=== PATIENT | male | born 1975 | race African-American/Black ===

== ENCOUNTER 2017-12-11 21:25 | Emergency (ER) | payer OTHER ==
[2017-12-11 22:08] VITALS: BP 122/81
[2017-12-11] MEDS ORDERED: NACL 0.9% IR ONE (23:52)
[2017-12-11] MEDS ORDERED: BOOSTRIX IM ONE (23:52)
[2017-12-11] MEDS ORDERED: XYLOCAINE 1% 20 mL INFILTRATI ONE (23:52)
--- NOTE | 2017-12-12 00:05 | Emergency Department Report ---
ED Laceration HPI - HPI Chief Complaint: Wound/Laceration Stated Complaint: RIGHT FOOT LACERATION Time Seen by Provider: 12/11/17 23:52 Occurred When: Today Location: Lower Extremity (right foot) Severity: moderate Tetanus Status: Unknown Laceration Symptoms: Yes Pain, No Foreign Body Sensation, No Numbness, No Weakness Other History: Patient states he was working in on leak in a crawl space. There was a low hanging light bulb that the patient actually kicked while trying to wedge himself and a small space. Patient has laceration atop the right foot ED Review of Systems ROS: Stated complaint: RIGHT FOOT LACERATION Other details as noted in HPI Comment: All other systems reviewed and negative ED Past Medical Hx - Past Medical History Previous Medical History?: No - Surgical History Past Surgical History?: No - Social History Smoking Status: Never Smoker Substance Use Type: None - Medications Home Medications: Home Medications Medication Instructions Recorded Confirmed Last Taken Type Multivitamin Tab [Multiple Vitamin 1 each PO QDAY 05/19/15 05/19/15 Unknown History TAB (Theragran)] Ibuprofen [Motrin] 600 mg PO Q8H PRN #20 tablet 12/12/17 Unknown Rx Laceration Physical Exam - Exam General: Vital signs noted. No distress. Alert and acting appropriately. Wound Length (cm): 3 Laceration Location: Lower Extremity (R dorsum of the foot') Laceration Exam: Yes Normal Distal CMS, No Exposed Tendon, Vessel, or Nerve, No Tendon Injury ED Course Vital Signs 12/11/17 12/11/17 22:04 22:53 Temperature 98.9 F 98.9 F Pulse Rate 79 78 Respiratory 18 18 Rate Blood Pressure 122/81 122/81 O2 Sat by Pulse 98 99 Oximetry - Laceration /Wound Repair Right Dorsal Foot Wound Length (cm): 3 Wound's Depth, Shape: superficial, linear Wound Explored: no foreign body removed Irrigated w/ Saline (ccs): 300 Betadine Prep?: Yes Anesthesia: 1% Lidocaine Wound Repaired With: sutures Suture Size/Type: 3:0, proline, nylon Number of Sutures: 6 (running stitch) Layer Closure?: No Sterile Dressing Applied?: Yes Progress: tolerated procedure well Critical care attestation.: If time is entered above; I have spent that time in minutes in the direct care of this critically ill patient, excluding procedure time. ED Disposition Clinical Impression: Laceration Disposition: DC-01 TO HOME OR SELFCARE Is pt being admited?: No Does the pt Need Aspirin: No Condition: Stable Instructions: Suture Care (ED), Laceration (ED) Additional Instructions: Please have sutures removed in the emergency Department, urgent care, or your primary care physician in one week Time of Disposition: 00:49
[2017-12-12] MEDS ORDERED: BOOSTRIX IM ONE (01:56)
== END 2017-12-12 01:55 | disposition home or self-care (01) ==
LOC: ED 21:25
DX: S91.311A Laceration without foreign body, right foot, initial encounter (principal); W22.8XXA Striking against or struck by other objects, initial encounter; Y93.89 Activity, other specified; Y92.89 Other specified places as the place of occurrence of the external cause; Y99.8 Other external cause status
CPT/HCPCS: 90471; 90715; 99282